=== PATIENT | male | born 1970 | race Caucasian/White ===

== ENCOUNTER → 2017-03-11 | Outpatient (CLI) | payer OTHER ==
[~2017-03-11] MED LIST: BUPR-173 PO; BUPR8TAB PO
== END ==
LOC: STAR 12:16
PROVIDERS: ATTEND Orthopaedic Surgery
DX: Z02.9 Encounter for administrative examinations, unspecified (principal)

== ENCOUNTER 2017-03-16 09:01 | Day surgery (SDC) | payer OTHER ==
[~2017-03-16] VITALS: Ht 175.3 cm; Wt 142.5 kg
[~2017-03-16 09:01] MED LIST changes: +EPINEPHRINE 1 MG/ML, 1ML ONE; +KETOROLAC 60 MG/2 ML ONE; +ROPIvacaine/PF 0.2%, 20 ML ONE; +SODIUM CHLORIDE 0.9% 50 ML ONE; +TRANEXAMIC ACID 100 MG/ML, 10ML ONE
[2017-03-16] MEDS ORDERED: LACTATED RINGERS 1,000 ML IV SCH (09:46)
[2017-03-16 09:47] VITALS: BP 162/91
[2017-03-16] MEDS ORDERED: MIDAZOLAM 1 MG/ML, 2ML ONE (10:21)
[2017-03-16] MEDS ORDERED: FENTANYL PF 100 MCG/2ML ONE (10:52)
[2017-03-16] MEDS ORDERED: PROPOFOL 10 MG/ML, 20ML ONE (11:47)
[2017-03-16] MEDS ORDERED: HYDROcodone/APAP 7.5-325MG/15ML UDC PO PRN (12:30)
[2017-03-16] MEDS ORDERED: FENTANYL PF 100 MCG/2ML IV PRN (12:30)
[2017-03-16] MEDS ORDERED: OXYcodone 5 MG/5 ML ORAL.SOL UDC PO PRN (12:30)
[2017-03-16] MEDS ORDERED: ACETAMINOPHEN 325 MG TABLET PO PRN (12:30)
[2017-03-16] MEDS ORDERED: HYDROmorphone 1 MG/ML, 1ML IV PRN (12:30)
== END 2017-03-16 14:05 ==
LOC: OUT 09:01
PROVIDERS: ATTEND Orthopaedic Surgery
DX: M25.662 Stiffness of left knee, not elsewhere classified (principal); E66.01 Morbid (severe) obesity due to excess calories; Z68.42 Body mass index [BMI] 45.0-49.9, adult; Z96.652 Presence of left artificial knee joint; Z98.890 Other specified postprocedural states
CPT/HCPCS: 27570; J0171; J1885; J2250; J2704; J2795; J3010; J7120